=== PATIENT | female | born 1980 | race Caucasian/White ===

== ENCOUNTER 2018-07-13 16:43 | Emergency (ER) | payer OTHER, SELFPAY ==
[2018-07-13 16:44] VITALS: BP 122/87; PULSE 61; RESP 18; TEMP 36.2; O2SAT 99; BMI 27.4
--- NOTE | 2018-07-13 17:01 | ED.VISSUMM ---
- ER Visit Summary Date of Service: 07/13/18 Chief Complaint: Right small finger laceration History of Present Illness: The patient is a 37 F no significant past medical or surgical history. Tetanus up-to-date within the last 5 years. 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 This occurred within the last hour. She denies any other injuries. She is right-hand dominant. Physical Examination: Well-appearing female vital signs stable afebrile. HEENT, neck, heart, lung exams are all unremarkable. Her right small finger on the palmar ulnar side there is a flap-like laceration. Involves the skin and subcu tissue. She has full flexion-extension of the right small finger. Normal cap refill normal touch sensation. No bony deformity. Finger appears to be neurovascular intact. Test Results: None Emergency Department Course and Treatment: Right small finger flap laceration ER repair. Metacarpal block. Once proper anesthetic was obtained laceration cleaned with Shur-Clens copiously irrigated and explored. Closed using #4 5-0 simple interrupted suture. Proper hemostasis wound closure obtained. Patient tolerated procedure well. Was instructed on wound care. Treatment Plan: Wound care. Suture removal in 7 to 10 days. Watch for signs of infection. Disposition: Discharge Impression: Right small finger flap laceration with ER repair 2.5 cm This note was generated with [employer] dictation software. It may contain incorrect words, spelling, and punctuation that were not noted in review of the chart prior to signing ED Disposition - Plan for ED Patient: Referrals: Care Physician,No Primary [NON-STAFF] -
--- NOTE | 2018-07-13 17:32 | ED.DEP ---
ED Disposition - Plan for ED Patient: Disposition: Home or Assisted Living Instructions: ED Laceration Hand Referrals: Yury Khan MD [STAFF PHYSICIAN] - 7 Days for suture removal Additional Instructions: Keep finger clean and dry. Apply antibiotic ointment daily. Clean with soap and water or peroxide water twice daily. Ice and elevate to the swelling. Remove the stitches in 7 to 10 days. Watch for signs of infection such as pus, swelling, red streaks or fever.
[2018-07-13 17:47] VITALS: BP 122/59; PULSE 74; RESP 15; O2SAT 99
== END 2018-07-13 17:49 | disposition home or self-care (01) ==
PROVIDERS: Emergency Provider Emergency Medicine; Family Provider Internal Medicine; PCP Internal Medicine
DX: S61.216A Laceration without foreign body of right little finger without damage to nail, initial encounter (principal); W26.8XXA Contact with other sharp object(s), not elsewhere classified, initial encounter; Y93.89 Activity, other specified; Y92.000 Kitchen of unspecified non-institutional (private) residence as the place of occurrence of the external cause; Y99.8 Other external cause status
CPT/HCPCS: 12001; 99284

== ENCOUNTER → 2019-10-27 16:00 | Outpatient (CLI) | payer OTHER, SELFPAY ==
[2019-11-01 16:23] LABS: HPV Reflexed? NOT INDICATED
== END ==
PROVIDERS: PCP Internal Medicine; Visit Provider Obstetrics & Gynecology
DX: Z12.4 Encounter for screening for malignant neoplasm of cervix (principal)
CPT/HCPCS: 88175; G0145

== ENCOUNTER → 2021-06-26 | Outpatient (CLI) | payer OTHER, SELFPAY ==
[2021-07-02 16:41] LABS: HPV Reflexed? NOT INDICATED
== END | disposition home or self-care (01) ==
LOC: LABSPEC 06-27 08:56
PROVIDERS: PCP Internal Medicine; Visit Provider Obstetrics & Gynecology
DX: Z12.4 Encounter for screening for malignant neoplasm of cervix (principal)
CPT/HCPCS: 88175; G0145